=== PATIENT | female | born 1975 | race African-American/Black ===

== ENCOUNTER → 2016-05-10 | Outpatient (CLI) | payer BC | LOC: FIMAGING 09:45 | PROVIDERS: ATTEND Family Medicine | DX: D25.9 Leiomyoma of uterus, unspecified (principal); N83.201 Unspecified ovarian cyst, right side; R51 Headache ==

== ENCOUNTER → 2016-09-29 | Outpatient (CLI) | payer BC | LOC: FIMAGING 10:12 | PROVIDERS: ATTEND Registered Nurse | DX: N63 Unspecified lump in breast (principal) | CPT/HCPCS: G0204 ==